=== PATIENT | male | born 1950 | race African-American/Black ===

== ENCOUNTER 2020-09-13 14:00 | Inpatient (IN) | payer MEDICARE ==
[~2020-09-13] VITALS: Ht 175.3 cm; Wt 159.2 kg
[2020-09-13] MEDS ORDERED: FUROSEMIDE 40MG/4ML VIAL IV ONE (14:30)
[2020-09-13 15:08] LABS: CHLORIDE 108 mEq/L (98-107)
[2020-09-13 15:12] LABS: ETHANOL BLOOD < 10 mg/dL
[2020-09-13 15:30] LABS: BASOPHILS % 1.3 % (0.0-2.0); EOSINOPHILS % 6.3 % (0.0-5.0); HEMATOCRIT. 39.4 % (42.0-52.0); HEMOGLOBIN. 13.7 g/dL (14.0-18.0); LYMPHOCYTES % 15.8 % (20.0-50.0); MEAN CORPUSCULAR HEMOGLOBIN 31.2 pg (28.0-32.0); MEAN CORPUSCULAR VOLUME 90.1 fL (80.0-94.0); MEAN PLATELET VOLUME 7.8 fl (7.4-10.4); MONOCYTES % 11.3 % (2.0-8.0); NEUTROPHILS % 65.3 % (40.0-76.0); PLATELET 245 x1000/uL (130-400); RED BLOOD CELL COUNT 4.38 mill/uL (4.7-6.1); RED CELL DISTRIBUTION WIDTH 15.2 % (11.6-14.6)
[2020-09-13] MEDS ORDERED: MAGNESIUM/ALUMINUM HYDROXIDE/SIMETHICONE 30ML UDC PO PRN (16:15)
[2020-09-13] MEDS ORDERED: DOCUSATE SODIUM 100MG CAPSULE PO PRN (16:15)
[2020-09-13] MEDS ORDERED: ACETAMINOPHEN 325MG TABLET PO PRN ×2 (16:15)
[2020-09-13] MEDS ORDERED: KETOROLAC 15MG/ML VIAL IV PRN (16:15)
[2020-09-13] MEDS ORDERED: IPRATROPIUM/ALBUTEROL 0.5-3(2.5)MG/3ML NEB NEB PRN (16:15)
[2020-09-13] MEDS ORDERED: NITROGLYCERIN 0.4MG TABLET SL SL PRN (16:15)
[2020-09-13] MEDS ORDERED: GUAIFENESIN 200MG/10ML SUGAR FREE UDC PO PRN (16:15)
[2020-09-13] MEDS ORDERED: ZOLPIDEM TARTRATE 5MG TABLET PO PRN (16:15)
[2020-09-13] MEDS ORDERED: TRAMADOL 50MG TABLET PO PRN (16:15)
[2020-09-13] MEDS ORDERED: ONDANSETRON HCL 4MG/2ML INJ IV PRN (16:15)
[2020-09-13 17:03] LABS: T4 FREE 1.24 ng/dL (0.76-1.46)
[2020-09-13 17:36] LABS: FOLIC ACID (FOLATE) SERUM 7.2 ng/mL (>5.38)
[2020-09-13] MEDS: GUAIFENESIN/DM 600MG/30MG ER TAB 12HR PO SCH (18:19)
[2020-09-13] MEDS: FUROSEMIDE 40MG/4ML VIAL IVP SCH (20:12)
[2020-09-13] MEDS: ENOXAPARIN 30MG/0.3ML SYR SUBCUT SCH (20:12)
[2020-09-13] MEDS: ASCORBIC ACID 500 MG TABLET PO SCH (20:13)
[2020-09-13] MEDS: SPIRONOLACTONE 25MG TABLET PO SCH (20:13)
[2020-09-13] MEDS: FAMOTIDINE 20MG TABLET PO SCH (20:13)
[2020-09-13] MEDS: CLONIDINE 0.1MG TABLET PO PRN (20:59)
[2020-09-13 22:30] VITALS: BP_SYST 136; BP_SYST 169; BP_DIAS 72; BP_DIAS 81
[2020-09-13] MEDS: AMLODIPINE 10MG TABLET PO SCH (22:48)
[2020-09-14] VITALS: BP 127/60
[2020-09-14] MEDS: GUAIFENESIN/DM 600MG/30MG ER TAB 12HR PO SCH ×2 (03:24→17:02)
[2020-09-14 04:00] VITALS: BP 148/69
[2020-09-14] MEDS: ENOXAPARIN 30MG/0.3ML SYR SUBCUT SCH (05:24)
[2020-09-14 05:47] LABS: BASOPHILS % 1.1 % (0.0-2.0); EOSINOPHILS % 2.4 % (0.0-5.0); HEMATOCRIT. 42.9 % (42.0-52.0); HEMOGLOBIN. 14.2 g/dL (14.0-18.0); LYMPHOCYTES % 12.4 % (20.0-50.0); MEAN CORPUSCULAR HEMOGLOBIN 30.2 pg (28.0-32.0); MEAN CORPUSCULAR VOLUME 91.1 fL (80.0-94.0); MONOCYTES % 10.6 % (2.0-8.0); NEUTROPHILS % 73.5 % (40.0-76.0); PLATELET 241 x1000/uL (130-400); RED BLOOD CELL COUNT 4.71 mill/uL (4.7-6.1); RED CELL DISTRIBUTION WIDTH 15.2 % (11.6-14.6)
[2020-09-14 06:04] LABS: CHLORIDE 103 mEq/L (98-107)
[2020-09-14 06:15] LABS: PHOSPHORUS 3.6 mg/dL (2.5-4.9)
[2020-09-14 06:16] LABS: CREATINE KINASE 75 IU/L (39-308)
[2020-09-14 06:20] LABS: CREATINE KINASE MB FRACTION < 1.0 ng/mL (0.5-3.6)
[2020-09-14 08:00] VITALS: BP 168/91
[2020-09-14] MEDS: SPIRONOLACTONE 25MG TABLET PO SCH ×2 (08:53→21:39)
[2020-09-14] MEDS: AMLODIPINE 10MG TABLET PO SCH (08:53)
[2020-09-14] MEDS: FUROSEMIDE 40MG/4ML VIAL IVP SCH ×2 (08:53→21:36)
[2020-09-14] MEDS: FAMOTIDINE 20MG TABLET PO SCH ×2 (08:53→21:36)
[2020-09-14] MEDS: ASPIRIN 325MG EC TABLET PO SCH (08:54)
[2020-09-14] MEDS: ASCORBIC ACID 500 MG TABLET PO SCH ×2 (08:54→21:36)
[2020-09-14] MEDS: ZINC SULFATE 220 MG ( 50 ) CAPSULE PO SCH (08:58)
[2020-09-14 12:00] VITALS: BP 160/92
[2020-09-14 16:00] VITALS: BP 175/65
[2020-09-14 16:21] LABS: CREATINE KINASE 101 IU/L (39-308); CREATINE KINASE MB FRACTION < 1.0 ng/mL (0.5-3.6)
[2020-09-14] MEDS: ENOXAPARIN 40MG/0.4ML SYR SUBCUT SCH (17:04)
[2020-09-14] MEDS: CLONIDINE 0.1MG TABLET PO PRN (18:30)
[2020-09-14 20:00] VITALS: BP 121/86
[2020-09-15] VITALS: BP 125/70
[2020-09-15] MEDS: GUAIFENESIN/DM 600MG/30MG ER TAB 12HR PO SCH ×2 (03:17→17:18)
[2020-09-15 04:00] VITALS: BP 124/67
[2020-09-15] MEDS: ENOXAPARIN 40MG/0.4ML SYR SUBCUT SCH ×2 (06:58→17:19)
[2020-09-15 08:00] VITALS: BP 133/85
[2020-09-15] MEDS: ASPIRIN 325MG EC TABLET PO SCH (08:46)
[2020-09-15] MEDS: FAMOTIDINE 20MG TABLET PO SCH ×2 (08:46→20:52)
[2020-09-15] MEDS: SPIRONOLACTONE 25MG TABLET PO SCH ×2 (08:46→20:54)
[2020-09-15] MEDS: ASCORBIC ACID 500 MG TABLET PO SCH ×2 (08:46→20:52)
[2020-09-15] MEDS: FUROSEMIDE 40MG/4ML VIAL IVP SCH ×2 (08:46→20:52)
[2020-09-15] MEDS: AMLODIPINE 10MG TABLET PO SCH (08:46)
[2020-09-15] MEDS: ZINC SULFATE 220 MG ( 50 ) CAPSULE PO SCH (08:46)
[2020-09-15 12:00] VITALS: BP 110/57
[2020-09-15 16:00] VITALS: BP 121/56
[2020-09-15 20:00] VITALS: BP 136/78
[2020-09-16] VITALS (7 sets, daily range): BP systolic 116–148; BP diastolic 61–93
[2020-09-16] MEDS: GUAIFENESIN/DM 600MG/30MG ER TAB 12HR PO SCH ×2 (05:05→18:04)
[2020-09-16] MEDS: ENOXAPARIN 40MG/0.4ML SYR SUBCUT SCH ×2 (05:05→18:04)
[2020-09-16] MEDS: ASCORBIC ACID 500 MG TABLET PO SCH ×2 (09:03→20:03)
[2020-09-16] MEDS: ZINC SULFATE 220 MG ( 50 ) CAPSULE PO SCH (09:03)
[2020-09-16] MEDS: FUROSEMIDE 40MG/4ML VIAL IVP SCH ×2 (09:03→20:03)
[2020-09-16] MEDS: AMLODIPINE 10MG TABLET PO SCH (09:03)
[2020-09-16] MEDS: SPIRONOLACTONE 25MG TABLET PO SCH ×2 (09:04→20:02)
[2020-09-16] MEDS: ASPIRIN 325MG EC TABLET PO SCH (09:04)
[2020-09-16] MEDS: FAMOTIDINE 20MG TABLET PO SCH ×2 (10:34→20:02)
[2020-09-17 03:06] VITALS: BP 141/83
[2020-09-17] MEDS: GUAIFENESIN/DM 600MG/30MG ER TAB 12HR PO SCH ×2 (05:10→15:20)
[2020-09-17] MEDS: ENOXAPARIN 40MG/0.4ML SYR SUBCUT SCH ×2 (05:10→17:00)
[2020-09-17 08:00] VITALS: BP 160/95
[2020-09-17] MEDS: FUROSEMIDE 40MG/4ML VIAL IVP SCH ×2 (08:06→20:24)
[2020-09-17] MEDS: SPIRONOLACTONE 25MG TABLET PO SCH ×2 (08:06→20:24)
[2020-09-17] MEDS: AMLODIPINE 10MG TABLET PO SCH (08:07)
[2020-09-17] MEDS: ZINC SULFATE 220 MG ( 50 ) CAPSULE PO SCH (08:07)
[2020-09-17] MEDS: ASCORBIC ACID 500 MG TABLET PO SCH ×2 (08:07→20:24)
[2020-09-17] MEDS: FAMOTIDINE 20MG TABLET PO SCH ×2 (08:07→20:24)
[2020-09-17] MEDS: ASPIRIN 325MG EC TABLET PO SCH (08:07)
[2020-09-17 12:00] VITALS: BP 152/91
[2020-09-17 16:00] VITALS: BP 141/93
[2020-09-17 19:37] VITALS: BP 121/71
[2020-09-17 23:41] VITALS: BP 113/62
[2020-09-18 03:24] VITALS: BP 117/67
[2020-09-18] MEDS: GUAIFENESIN/DM 600MG/30MG ER TAB 12HR PO SCH (05:04)
[2020-09-18] MEDS: ENOXAPARIN 40MG/0.4ML SYR SUBCUT SCH (05:04)
[2020-09-18 07:59] VITALS: BP 128/67
[2020-09-18] MEDS: FUROSEMIDE 40MG/4ML VIAL IVP SCH (08:32)
[2020-09-18] MEDS: ASCORBIC ACID 500 MG TABLET PO SCH (08:33)
[2020-09-18] MEDS: ZINC SULFATE 220 MG ( 50 ) CAPSULE PO SCH (08:33)
[2020-09-18] MEDS: SPIRONOLACTONE 25MG TABLET PO SCH (08:33)
[2020-09-18] MEDS: AMLODIPINE 10MG TABLET PO SCH (08:33)
[2020-09-18] MEDS: FAMOTIDINE 20MG TABLET PO SCH (08:33)
[2020-09-18] MEDS: ASPIRIN 325MG EC TABLET PO SCH (08:33)
[2020-09-18 12:00] VITALS: BP 110/70
[2020-09-18 15:10] VITALS: BP 122/78
[2020-09-18 15:39] VITALS: BP 122/72
== END 2020-09-18 16:30 | disposition home health service (06) | DRG 292 ==
LOC: ER 14:00 → SUPCPDRO 16:05 → 8WST 16:09 → ENRESERV 21:42
PROVIDERS: ADMIT Internal Medicine; ATTEND Internal Medicine
DX: I11.0 Hypertensive heart disease with heart failure (principal); Z68.43 Body mass index [BMI] 50.0-59.9, adult; I50.33 Acute on chronic diastolic (congestive) heart failure; R26.2 Difficulty in walking, not elsewhere classified; H91.90 Unspecified hearing loss, unspecified ear; E66.01 Morbid (severe) obesity due to excess calories; Z71.3 Dietary counseling and surveillance
CPT/HCPCS: 36415; 71045; 80053; 80061; 80320; 82550; 82553; 82607; 82746; 83036; 83540; 83550; 83735; 83880; 84100; 84439; 84443; 84484; 85025; 93005; 93306; 93970; 97116; 97162; 97166; 97535; 99285; C1893; J1650; J1940; G0480